=== PATIENT | female | born 1980 | race African-American/Black ===

== ENCOUNTER → 2022-09-08 | Day surgery (SDC) | payer OTHER | END | disposition home or self-care (01) | LOC: FMAMMOTONE 12:47 | PROVIDERS: ATTEND Family Medicine | PROC: 0HBT3ZX Excision of Right Breast, Percutaneous Approach, Diagnostic (ICD-10-PCS; principal; 2022-09-08) | DX: N60.11 Diffuse cystic mastopathy of right breast (principal); N60.31 Fibrosclerosis of right breast; N60.81 Other benign mammary dysplasias of right breast; N63.15 Unspecified lump in the right breast, overlapping quadrants | CPT/HCPCS: 19081; 88305-TC; A4648 ==